=== PATIENT | male | born 2005 | race Caucasian/White ===

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

== ENCOUNTER 2024-01-26 11:07 | Outpatient (CLI) | payer MEDICAID, SELFPAY | END 2024-01-26 11:08 | disposition home or self-care (01) | PROVIDERS: Visit Provider Family Medicine | DX: E83.42 Hypomagnesemia (principal); R10.9 Unspecified abdominal pain; R11.0 Nausea | CPT/HCPCS: 80053; 83735 ==

== ENCOUNTER 2025-02-28 22:57 | Emergency (ER) | payer BC, SELFPAY ==
--- OUTSIDE RECORDS SUMMARY | 2025-02-28 22:59 | XMS_ITS | Clinical Summary ---
Author Organization [facility] Address [address] [place] [id number] Care Team Providers Care Camp Counselor Name Role Phone None Primary Care Provider Unavailabl e Allergies No known active allergies Medications aluminum-magnesium hydroxide-simethic one 200-200-20 mg/5 mL suspensionIndicati ons:Abdominal pain, unspecified abdominal location Take 15 mL by mouth 4 times daily if needed for GI Upset. Shake Well. 355 mL 10/05/19 25 Active capsaicin (ZOSTRIX-HP) 0.1 % creamIndications:C yclic vomiting syndrome Apply a liberal ribbon to abdomen as needed every 4 hours for nausea and vomiting (if it isn't burning it isn't working). 120 g 1 5 9:10 AM CDT 10/12/19 25 Active prochlorperazine (COMPAZINE) 25 mg suppositoryIndicat ions:Cyclic vomiting syndrome Insert 1 Suppository (25 mg) rectally every 12 hours if needed for Nausea/Vomitin g. 4 Suppository 5 9:10 AM CDT 10/12/19 25 Active ondansetron (ZOFRAN ODT) 4 mg disintegrating tabletIndications: Abdominal pain, unspecified abdominal location,Vomiting, unspecified vomiting type, unspecified whether nausea present Place 1 Tablet (4 mg) on the tongue every 8 hours if needed for Nausea/Vomitin g. 10 Tablet 5 9:10 AM CDT 10/12/19 Active ondansetron (ZOFRAN ODT) 4 mg disintegrating tabletIndications: Vomiting, unspecified vomiting type, unspecified whether nausea present Place 1 Tablet (4 mg) on the tongue every 8 hours if needed for Nausea/Vomitin g. 10 Tablet 02/16/20 Active metoclopramide HCl (REGLAN) 10 mg tabletIndications: Cyclical vomiting with nausea Take 1 Tablet (10 mg) by mouth every 6 hours if needed for Nausea/Vomitin g. 30 Tablet 02/21/20 Active Active Problems Problem Noted Date Diagnosed Date Hypokalemia 10/10/2024 Intractable nausea and vomiting 10/10/2024 Postoperative abscess 03/04/2024 Insomnia 03/04/2024 Appendicitis 02/28/2024 Anemia, blood loss 02/28/2024 Marijuana use 01/15/[address] of the abdomen 01/15/2024 Autism spectrum disorder 10/21/2020 Current moderate episode of major depressive disorder without prior episode 10/21/2020 ADHD (attention deficit hype ractivity disorder), combined type 10/21/2020 Myopia of both eyes 11/25/2015 Resolved Problems Problem Noted Date Diagnosed Date Resolved Date Hypokalemia 03/04/2024 03/14/2024 Syncope and collapse 02/28/2024 024 Hypomagnesemia 01/16/2024 03/14/2024 Intractable nausea and vomiting 01/15/2024 03/14/2024 Hyperglycemia 01/15/2024 03/14/2024 Encounters Date Type Department Care Team Description 02/20/2025 4:51 PM [facility] - 02/20/2025 7:09 PM [facility] Emergency [facility] [address] [place] [address] Matilde Marvin MD Cyclical vomiting with nausea (Primary Dx) Discharge Disposition: Home Self Care 02/20/2025 Travel 02/15/2025 8:36 PM [facility] - 02/15/2025 11:19 PM [facility] Emergency [facility] [address] [place] [address] Jona Baldwin MD Abdominal pain, unspecified abdominal location (Primary Dx); Vomiting, unspecified vomiting type, unspecified whether nausea present; Leukocytosis, unspecified type Discharge Disposition: Home Self Care 02/15/2025 Travel 02/06/2025 9:[address] CLERK Office Visit [facility] [address] [place] [address], [place] [address] Roseann Khan, OD Eye Exam 02/06/2025 Travel from Last 3 Months Immunizations Immunization Administration Dates Next Due DTaP 11/28/2008, 6,2004,10/27,2004 IHbI-GtzB-LSW (Pediarix) 2004,2004 DTaP-IPV (Kinrix) 11/28/2008 HIB PRP-OMP (PedvaxHIB) 10/01/2005,2004 HIB-HepB (Comvax) 2004 HPV 9 (Gardasil 9) 12/18/2021,10/25/2019 Hepatitis A (Peds) 11/11/2016,11/28/2008 Hepatitis B (Peds) 2004, 5,2004,06/25 Hib Conjugate, Unspecified 10/01/2005,2004 ,2004 INFLUENZA, IIV3 PF (AGE >= 6 MO) 02/29/2024() Inactivated Polio Vaccine 2004 Influenza Virus, Unspecified 01/24/2009 Influenza, IIV3 (Age >=3 years) 03/13/2010,01/24 Influenza, IIV4 03/15/2019 Influenza,LAIV3 Live Intrana ledy (Flumist) 03/13/2010 MENINGOCOCCAL VACCINE (MENQU ADFI 0.5ML) 2YO+ POLYSACCHARIDE PF 12/18/2021 MENINGOCOCCAL VACCINE 2 VIAL 2MO-55YO (MENVEO) 11/11/2016 MMR 11/28/2008,07/07/2005 Meningococcal B 12/18/2021 Pneumococcal conj 7-Valent (Prevnar 7) 0 10/01/2005,2004,2004,08/26 Polio Virus, Unspecified 11/28/2008,12/05,2004,08/26 Tdap 11/11/2016 Varicella Vaccine 11/28/2008,07/07/2005 Family History Medical History Relation Name Comments Good Health Brother 1 Good Health Brother 2 Good Health Brother 3 Good Health Brother 4 Good Health Father Good Health Mother Good Health Sister Relation Name Status Comments Brother 1 Alive Brother 2 Alive Brother 3 Alive Brother 4 Alive Father Alive Mother Alive Sister Alive Social History Tobacco Use Types Packs/Day Years Used Date Smoking Tobacco: Never Smokeless Tobacco: Never Tobacco Cessation:Counseling Given: No Alcohol Use Standard Drinks/Week Comments No 0 (1 standard drink = 0.6 oz pur e alcohol) Social Connections Answer Date Recorded Do you often feel lonely or isolated from those around you? 0 10/10/2024 Financial Resource Strain Answer Date R ecorded Difficulty of Paying Living Expenses 3 01/15/2024 Difficulty of Paying Living Expenses Not on file 01/15/2024 Food Insecurity Answer Date Recorded Do you worry your food will run out before you are able to buy more? 1 10/10/2024 Transportation Needs Answer Date Record ed Does lack of transportation keep you from medica l appointments? 1 10/10/2024 Does lack of transportation keep you from work, meetings or getting things that you need? 1 10/10/2024 Housing Stability Answer Date Recorded What is your housing situation today? 1 10/10/2024 Interpersonal Safety Answer Date Record ed Are you being hit, kicked, p ushed or yelled at (see row info)? No 02/20/2025 Interpersonal Safety Abuse 12 - 18 Not on file 02/20/2025 Interpersonal Safety Ambulatory Vulnerability No t on file 02/20/2025 Utilities Answer Date Recorded Do you have trouble paying f or utilities (for example, heat, electricity, water, phone)? 1 10/10/2024 Sex and Gender Information Value Date Recorded Sex Assigned at Not on file Legal Sex Male 7:[address] CLERK Gender Identity Not on file Sexual Orientation Not on file Obstetrics History Last Filed Vital Signs Vital Sign Reading Time Taken Comments Blood Pressure 118/70 02/20/2025 7:[address] CLERK Pulse 87 02/20/2025 7:[address] CLERK Temperature 36.6 C (97.9 F) 02/20/2025 4:[address] CLERK Respiratory Rate 16 02/20/2025 4:[address] CLERK Oxygen Saturation 97% 02/20/2025 7:[address] CLERK Inhaled Oxygen Concentration - - Weight 59.2 kg (130 lb 9.6 oz) 02/20/2025 4:[address] CLERK Height 175.3 cm (5' 9) 02/20/2025 4:[address] CLERK Body Mass Index 19.29 02/20/2025 4:[address] CLERK Plan of Treatment Health Maintenance Due Date Last Done Comments Well Child Check for age 3-20 05/28/2007 Depression screening for age 12+ 2016 HIV for age 15-65 06/26/2019 HPV series for age 9-45 (3 - Male 3-dose series) 03/12/2022 12/18/2021, 10/25/2019 Hepatitis C screening for age 18-79 2022 COVID-19 vaccine series ( season) 2024 08/23/2020, 08/02/2020 Influenza Vaccine (#1) 2024 9, 03/13/2010, 03/13/2010, Additional history exists BMI (ht and wt on same day) for age 18+ 10/12/2025 10/12/2024, 03/16/2024 Tetanus booster 11/11/2026 11/11/2016 RSV vaccine for adults or (1 - 1-dose 75+ series) 06/26/2079 Hepatitis B series for 19+ Completed 12/26, 2004, 2004, Additional history exists Pneumococcal series for age 6-49 Aged Out 10/01/2005, 2004, 2004, Additional history exists No longer eligible based on patient's age to complete this topic Meningococcal series for age 11-21 Completed 12/18/2021, 11/11/2016 Procedures Procedure Name Priority Date/Time Associated Diagnosis Comments MAGNESIUM STAT 02/20/2025 5:[address] CLERK BASIC METABOLIC PANEL STAT 02/20/2025 5:[address] CLERK CBC W PLT NO DIFF STAT 02/20/2025 5:[address] CT ABDOMEN PELVIS W STAT 02/15/2025 9 :[address] CLERK HEPATIC FUNCTION PANEL STAT 02/15/2025 9:[address] CLERK LIPASE STAT 02/15/2025 9:[address] CLERK BASIC METABOLIC PANEL STAT 02/15/2025 9:[address] CLERK CBC W PLT NO DIFF STAT 02/15/2025 9:[address] CLERK from Last 3 Months Results * (ABNORMAL) CBC W PLT NO DIFF (02/20/2025 5:[address] CLERK) Only the most recent of2 resultswithin the time period is included. WHITE BLOOD COUNT 11.0 4.5 - 11.0 thou/cu mm 02/20/2025 5:26 PM [facility] RED BLOOD COUNT 5.03 4.30 - 5.90 mil/cu mm 02/20/2025 5:26 PM [facility] HEMOGLOBIN 16.3 13.5 - 17.5 g/dL 02/20/2025 5:26 PM [facility] HEMATOCRIT 44.5 37.0 - 53.0 % 02/20/2025 5:26 PM [facility] MCV 89 80 - 100 fL 02/20/2025 5:26 PM [facility] MCH 32.4 26.0 - 34.0 pg 02/20/2025 5:26 PM [facility] MCHC 36.6(H) 32.0 - 36.0 g/dL 02/20/2025 5:26 PM [facility] RDW 11.4(L) 11.5 - 15.5 % 02/20/2025 5:26 PM [facility] PLATELET COUNT 345 140 - 440 thou/cu mm 02/20/2025 5:26 PM [facility] MPV 9.3 6.5 - 11.0 fL 02/20/2025 5:26 PM [facility] Blood BLOOD SPECIMEN / Unknown Venipuncture / Unknown 02/20/2025 5:[address] CLERK 02/20/2025 5:[address] CLERK Matilde Marvin MD HEMATOLOGY Final Result Performing Organization Address City/[facility]/ZIP Co de Phone Number [facility] [address] [place] [address] * MAGNESIUM (02/20/2025 5:[address] CLERK) Pathologist [facility] MAGNESIUM 2.2 1.6 - 2.6 mg/dL 02/20/2025 5:45 PM [facility] Blood BLOOD SPECIMEN / Unknown Venipuncture / Unknown 02/20/2025 5:[address] CLERK 02/20/2025 5:[address] CLERK Matilde Marvin MD CHEMISTRY Final Result Performing Organization Address City/[facility]/ZIP Co de Phone Number [facility] [address] [place] [address] * (ABNORMAL) BASIC METABOLIC PANEL (02/20/2025 5:[address] CLERK) Only the most recent of2 resultswithin the time period is included. SODIUM 138 136 - 145 mmol/L 02/20/2025 5:45 PM [facility] POTASSIUM 4.0 3.5 - 5.1 mmol/L 02/20/2025 5:45 PM [facility] CHLORIDE 99 98 - 107 mmol/L 02/20/2025 5:45 PM [facility] CO2,TOTAL 27 22 - 29 mmol/L 02/20/2025 5:45 PM [facility] ANION GAP 12 5 - 18 02/20/2025 5:45 PM [facility] GLUCOSE 112(H) 70 - 99 mg/dL 02/20/2025 5:45 PM [facility] CALCIUM 10.3 8.8 - 10.4 mg/dL 02/20/2025 5:[address] CLERK [facility] Comment: Reference ranges for this test were updated on 02/08/2024 to reflect our healthy population more accurately. Reference range changes are not retroactively applied to results, but previous results using the same methodology can be interpreted in the context of the new reference range. BUN 15 6 - 20 mg/dL 02/20/2025 5:[address] CLERK [facility] CREATININE 1.06 0.70 - 1.20 mg/dL 02/20/2025 5:[address] CLERK [facility] BUN/CREAT RATIO 14 10 - 20 5:[address] CLERK [facility] eGFR >90 >90 mL/min/1. 73m2 02/20/2025 5:[address] CLERK [facility] Comment:As of 2021, eG FR is calculated by the CKD-EPI creatinine equation without race adjustment. eGFR can be influenced by muscle mass, exercise, and diet. The reported eGFR is an estimation only and is only applicable if the renal function is stable. Blood BLOOD SPECIMEN / Unknown Venipuncture / Unknown 02/20/2025 5:[address] CLERK 02/20/2025 5:[address] CLERK Matilde Marvin MD CHEMISTRY Final Result [facility] [address] [place] [address] * CT ABDOMEN PELVIS W (02/15/2025 9:[address] CLERK) Anatomical Region Laterality Modality Abdomen, Pelvis, AORTA, LIVER, SPLEEN Computed Tomography 02/15/2025 11:[address] CLERK Impressions 02/15/2025 11:[address] CLERK No acute pathology in the abdomen or pelvis. Please note that all CT scans at this facility use dose modulation, iterative reconstruction, and/or weight-based dosing when appropriate to reduce radiation dose to as low as reasonably achievable. Dictated by Jaret Lorenzo MD @ 02/15/2025 11:08:30 PM (Electronically Signed) Narrative 02/15/2025 11:[address] CLERK For Patients: As a result of the Cures Act, medical imaging exams and procedure reports are released immediately into your electronic medical record. You may view this report before your referring provider. If you have questions, please contact your health care provider. INDICATION: Abdominal pain, acute, nonlocalized TECHNIQUE: CT abdomen and pelvis acquired with 100 cc Omnipaque 350 IV contrast. COMPARISON: CT abdomen and pelvis on October 03, 2024. FINDINGS: Lower chest: Unremarkable. Liver: Non cirrhotic morphology. Normal in size and attenuation. No suspicious masses. Gallbladder and bile ducts: No stones or inflammation. No biliary dilatation. Pancreas: No mass or inflammation. Spleen: Unremarkable. Normal in size. No masses. Adrenal glands: Unremarkable. No nodules. Kidneys: Symmetric enhancement with no perinephric fat stranding. No suspicious masses, stones, or hydronephrosis. GI tract: Stomach is decompressed, limiting evaluation, but appears grossly normal. Small and large bowel is normal in caliber without obstruction. Appendectomy. Colonic stool burden is within normal limits. No pneumatosis, pneumoperitoneum or portal venous gas. Vasculature: Abdominal aorta is normal in caliber. Mesenteric arteries are patent. Lymph nodes: No lymphadenopathy. Peritoneum/Abdominal Wall: No sign of mass or infiltration. No free air or significant free fluid. Pelvis: Unremarkable. Bones: No acute fracture. No aggressive appearing lytic or blastic osseous lesion Procedure Note Jaret Lorenzo MD - 02/15/2025 For Patients: As a result of the Cures Act, medical imagingexams and procedure reports are released immediately into your electronicmedical record. You may view this report before your referring provider.If you have questions, please contact your health care provider. INDICATION: Abdominal pain, acute, nonlocalized TECHNIQUE: CT abdomen and pelvis acquired with 100 cc Omnipaque 350 IV contrast. COMPARISON: CT abdomen and pelvis on October 03, 2024. FINDINGS: Lower chest: Unremarkable. Liver: Non cirrhotic morphology. Normal in size and attenuation. Nosuspicious masses. Gallbladder and bile ducts: No stones or inflammation. No biliarydilatation. Pancreas: No mass or inflammation. Spleen: Unremarkable. Normal in size. No masses. Adrenal glands: Unremarkable. No nodules. Kidneys: Symmetric enhancement with no perinephric fat stranding. Nosuspicious masses, stones, or hydronephrosis. GI tract: Stomach is decompressed, limiting evaluation, but appearsgrossly normal. Small and large bowel is normal in caliber withoutobstruction. Appendectomy. Colonic stool burden is within normal limits.No pneumatosis, pneumoperitoneum or portal venous gas. Vasculature: Abdominal aorta is normal in caliber. Mesenteric arteries arepatent. Lymph nodes: No lymphadenopathy. Peritoneum/Abdominal Wall: No sign of mass or infiltration. No free air orsignificant free fluid. Pelvis: Unremarkable. Bones: No acute fracture. No aggressive appearing lytic or blastic osseouslesion IMPRESSION: No acute pathology in the abdomen or pelvis. Please note that all CT scans at this facility use dose modulation,iterative reconstruction, and/or weight-based dosing when appropriate toreduce radiation dose to as low as reasonably achievable. Dictated by Jaret Lorenzo MD @ 02/15/2025 11:08:30 PM (Electronically Signed) Jona Baldwin MD CT Final R esult * LIPASE (02/15/2025 9:[address] CLERK) Pathologist [facility] LIPASE 14.5 13.0 - 60.0 IU/L 02/15/2025 9:[address] CLERK [facility] Blood BLOOD SPECIMEN / Unknown Butterfly / Unknown 02/15/2025 9:[address] CLERK 02/15/2025 9:[address] CLERK Jona Baldwin MD CHEMISTRY Final R esult [facility] [address] [place] [id number] * (ABNORMAL) HEPATIC FUNCTION PANEL (02/15/2025 9:[address] CLERK) ALBUMIN 5.2(H) 4.0 - 4.9 g/dL 02/15/2025 11:[address] CLERK [facility] PROTEIN,TOTAL 8.2(H) 6.0 - 8.0 g/dL 02/15/2025 11:[address] CLERK [facility] BILIRUBIN,TOTAL 1.2 0.0 - 1.2 mg/dL 02/15/2025 11:45 PM [facility] BILIRUBIN,DIRECT 0.4(H) 0.0 - 0.2 mg/dL 02/15/2025 11:45 PM [facility] BILIRUBIN,INDIRE CT 0.8 0.2 - 0.8 mg/dL 02/15/2025 11:[address] CLERK [facility] ALK PHOSPHATASE 104 40 - 129 IU/L 02/15/2025 11:45 PM [facility] ALT (SGPT) 20 10 - 50 IU/L 02/15/2025 11:45 PM [facility] AST (SGOT) 02/15/2025 11:45 PM [facility] Comment:Canceled- Invalid Re sult(s) Blood BLOOD SPECIMEN / Unknown Butterfly / Unknown 02/15/2025 9:[address] CLERK 02/15/2025 9:[address] CLERK Joan Baldwin MD CHEMISTRY Final R esult [facility] [address] [place] [address] from Last 3 Months Insurance [facility] * Guarantor: ROBERT GRAY Account Type Relation to Patient Date of Phone Billing Address Personal/Family Father [phone] [place] [address] Advance Directives * Full Code (Latest Code Status on File) Date Activated Date Inactivated Comments 10/10/2024 2:13 PM 10/11/2024 12:50 PM Question Answer Comments Code Status Discussion: Reviewed Preferences * Full Code Date Activated Date Inactivated Comments 03/04/2024 8:49 PM 03/09/2024 7:01 PM Question Answer Comments Code Status Discussion: Reviewed Preferences * Full Code Date Activated Date Inactivated Comments 02/27/2024 4:23 PM 02/29/2024 2:32 PM Question Answer Comments Code Status Discussion: Unable to Assess Preferences, Provider to review later * Full Code Date Activated Date Inactivated Comments 01/15/2024 6:42 PM 01/16/2024 1:32 PM Question Answer Comments Code Status Discussion: Reviewed Preferences * DNR Date Activated Date Inactivated Comments 01/15/2024 4:49 PM 01/15/2024 6:42 PM Question Answer Comments Code Status Discussion: Reviewed Preferences Care Teams Camp Counselor Relationship Specialty Start Date End Date None . PCP - General 02/15/25
[2025-02-28 23:19] VITALS: BP 146/95; PULSE 92; RESP 16; TEMP 35.9; O2SAT 94; BMI 19.2
--- NOTE | 2025-02-28 23:39 | ED.GENADULT ---
HPI - General Adult General Chief complaint: Nausea/Vomiting Stated complaint: vomiting, abdominal pain Time Seen by Provider: 02/28/25 23:28 Source: patient Mode of arrival: ambulatory Limitations: no limitations History of Present Illness HPI narrative: 19-year-old male presents to the emergency department with about of recurrent vomiting. Patient has been struggling with GI issues over the past year. It sounds like he had an appendicitis about a year ago, then had complications of disseminated infection after. He has been struggling with recurrent bouts of nausea and vomiting since. He tells me that he has had this worked up at an outside hospital multiple times, including his last visit which he says is 3 days ago, his significant other reports that it was under a week ago as well. He has had multiple prior CT scans, including at his last visit which were reportedly normal. No history pancreatitis. Reports that he had 3 [place] is a yesterday and has been having extensive nausea and vomiting ever since. He states that he does not use any THC or marijuana products on a regular basis, has tried them a couple of times but did not find them to be helpful. No fever. No trauma or injury. No bloody stools, no diarrhea. No hematemesis. He has been given Reglan and Zofran from the [facility]. He has never made an appointment with the primary care doctor or seen a GI specialist. He has tried both the Reglan and Zofran tonight with no significant improvement in symptoms. No hematemesis. No fever. Episodes are similar to previous. He reports his past medical history is notable for the appendicitis and subsequent GI issue since. No known drug allergies. No long-term meds, does have Zofran and Reglan p.r.n.. Denies marijuana. ROS is notable for the GI symptoms only, otherwise denies times 12 systems. Related Data Home Medications ?Medication ?Instructions ?Recorded ?Confirmed No Known Home Medications 12/18/21 01/01/22 Allergies Allergy/AdvReac Type Severity Reaction Status Date / Time No Known Drug Allergies Allergy Verified 01/26/24 10:30 [facility] Medical History Suicidal ideation ?R45.851 - Suicidal ideations (ICD-10) Autism spectrum disorder ?F84.0 - Autistic disorder (ICD-10) Major depression ?F32.9 - Major depressive disorder, single episode, unspecified (ICD-10) Social History What is your current living situation?: I presently have a place to live Problems where you live: no known problems In past 12 months, lack of transportation kept you from medical appts, meetings, work, or getting things needed for daily living: no In the past 12 mos, have been you worried that your food would run out before you had money to buy more?: never true In the past 12 mos, the food you bought just didn't last and you didn't have money to buy more?: never true Smoking Status: Never smoker Non-prescribed substance use: denies use How often does anyone, including family, friends and others, physically hurt you: never How often does anyone, including family, friends and others, insult or talk down to you: never How often does anyone, including family, friends and others, threaten you with harm: never How often does anyone, including family, friends and others, scream or curse at you: never Exam Const: Vital Signs, click to edit/add: Vital Signs - 24 hr 02/28/25 23:19 Temperature 96.7 F L Pulse Rate [Pulse Oximeter] 92 Respiratory Rate 16 Blood Pressure [Ri ght Upper Arm] 146/95 H Pulse Oximetry 94 Oxygen Delivery Me thod Room Air Documenting provider has reviewed patient's vital signs: yes Common normals: no apparent distress General appearance: cooperative HENMT: Common normals: normocephalic, moist oral mucous membranes and oropharynx normal Head and scalp: normocephalic Mouth: oral and palatal mucosa normal Eye: Common normals: conjunctivae normal Conjunctiva: conjunctiva(e) normal Other: Sclera looks slightly jaundiced. Neck & C-Spine: Common normals: full ROM and no lymphadenopathy General: normal visual inspection Resp: Common normals: normal respiratory effort, no use of accessory muscles and clear to auscultation bilaterally Effort & inspection: able to speak in complete sentences Auscultation: clear to auscultation bilaterally Cardio: Common normals: regular rate, regular rhythm, S1 normal heart sound, S2 normal heart sound and no murmurs Rate: regular rate Rhythm: regular rhythm Heart sounds: S1 normal and S2 normal GI: Common normals: Normal to inspection, nondistended, normoactive bowel sounds present, no hepatosplenomegaly and no masses Palpation: no hepatosplenomegaly Other: Mildly tender along epigastrium but does not tolerate the exam very well anywhere. Certainly does not have any rebound tenderness or guarding. Seems to have the same level of discomfort to light or deep touch. Back & Pelvis: Common normals: thoracic and lumbar spine normal to inspection Extremity: Common normals: normal to inspection, normal capillary refill and no pedal edema Psych: Appearance: grossly normal Attitude: engaged Activity/motor behavior: appropriate eye contact Insight: insight good Judgement: judgment good Skin: Common normals: no rashes or lesions noted General skin exam: no rashes or lesions noted Course Course ED Course: 19-year-old male with recurrent episodes of nausea and vomiting presenting with acute nausea and vomiting for 24 hours. Sounds like cyclic vomiting syndrome, does not sound cannabinoid induced based on lack of THC exposure. Patient has had this worked up multiple times including recent CT per his report at other hospitals. Will place peripheral IV, obtain typical labs to make sure there is no signs of biliary obstruction, pancreatitis, sepsis, severe infection, electrolyte abnormality, renal dysfunction. Will give lactated Ringer's, Compazine and Protonix. May benefit from a trial of olanzapine. Counseled patient that here in the ED, I am unlikely to be able to solve this in the middle of the night on a holiday for him. I have strongly encouraged him to make a follow-up appointment with primary care doctor and referral to a GI specialist for further workup. I do think he needs an endoscopy. But since he is not showing any signs of acute bleed, I do not have any indications to transfer him at this time. Will see how he response to initial medications and encourage further outpatient workup. Reevaluation(s) Reevaluation #1: Update: Patient had good improvement of symptoms with fluids, Compazine and Protonix. Labs reviewed, all reassuring. Counseled patient on management plan. He will make an outpatient appointment to work this up further. Will start omeprazole 20 mg p.o. daily. Continue Zofran and Reglan if needed. If patient not having improvement in a couple of weeks with the antacid, would recommend a consideration of olanzapine and or GI consult. Written instructions provided, all questions answered. Vital Signs Vital signs: Initial Vital Signs Temperature 96.7 F L 02/28/25 23:19 Temperature Source Temporal Artery Scan 02/28/25 23:19 Pulse Rate 92 02/28/25 23:19 Respiratory Rate 16 02/28/25 23:19 Blood Pressure 146/95 H 02/28/25 23:19 Blood Pressure Mean 112 H 02/28/25 23:19 Blood Pressure Position Semi-Fowlers 02/28/25 23:19 Pulse Oximetry 94 02/28/25 23:19 Oxygen Delivery Method Room Air 02/28/25 23:19 Vital Signs Temperature 96.7 F L 02/28/25 23:19 Pulse Rate 92 02/28/25 23:19 Respiratory Rate 16 02/28/25 23:19 Blood Pressure 146/95 H 02/28/25 23:19 Pulse Oximetry 94 02/28/25 23:19 Oxygen Delivery Method Room Air 02/28/25 23:19 Temperature 96.7 F L 02/28/25 23:19 Pulse Rate 92 02/28/25 23:19 Respiratory Rate 16 02/28/25 23:19 Blood Pressure 146/95 H 02/28/25 23:19 Pulse Oximetry 94 02/28/25 23:19 Oxygen Delivery Method Room Air 02/28/25 23:19 Medications Administered Medications: Discontinued Medications Generic Name Dose Route Start Last Admin Trade Name Freq PRN Reason Stop Dose Admin Lactated Ringer's 1,000 mls @ 1,000 mls/hr 02/28/25 23:29 03/01/25 01:00 Lactated Ringers 1000 Ml IV 03/01/25 00:28 Infused .Q1H ONE Infusion Lactated Ringer's 1,000 mls @ 1,000 mls/hr 03/01/25 00:30 03/01/25 02:03 Lactated Ringers 1000 Ml IV 03/01/25 01:29 Infused .Q1H ONE Infusion Pantoprazole Sodium 80 mg 02/28/25 23:36 03/01/25 00:23 Pantoprazole Sodium 40 Mg Inj IVP 02/28/25 23:37 80 mg ONCE ONE Administration Prochlorperazine 10 mg 02/28/25 23:36 03/01/25 00:23 Prochlorperazine 5 Mg/Ml Vial IV 02/28/25 23:37 10 mg ONCE ONE Administration Medical Decision Making Lab Data Lab results reviewed: Yes I reviewed the patient's lab results Lab results narrative: Labs reassuring. Minimal leukocytosis but normal creatinine, normal electrolytes. Anion gap is a little elevated but likely secondary to dehydration which of course will improve with all of the IV fluids given. Liver enzymes look good, inflammatory markers are negative, no pancreatitis. Labs: Lab Results 03/01/25 Range/Units 00:11 WBC 13.72 H (4.50-11.00) K/uL RBC 5.37 (4.30-5.90) m/uL Hgb 17.5 (13.5-17.5) gm/dL Hct 47.6 (37.0-53.0) % MCV 89 (80-100) fL MCH 33 (26-34) pg MCHC 37 H (32-36) gm/dL RDW Coeff of Jc 11.3 L (11.5-15.5) % Plt Count 385 (140-440) K/uL Neut % (Auto) 92.3 H (42.0-72.0) % Lymph % (Auto) 4.0 L (20-44) % [place] % (Auto) 3.5 (0.0-11.0) % Eos % (Auto) 0.0 (0.0-7.0) % Baso % (Auto) 0.1 (0.0-3.0) % Neut # (Auto) 12.70 H (1.7-7.0) K/uL Lymph # (Auto) 0.50 L (0.90-2.90) K/uL [place] # (Auto) 0.50 (0.00-0.90) K/UL Eos # (Auto) 0.00 (0.00-0.50) K/uL Baso # (Auto) 0.00 (0.00-0.30) K/uL Abs Immat Gran (auto) 0.00 (0.00-0.30) K/uL Imm/Tot Granulo (auto) 0.1 % Sodium 138 (135-149) mmol/L Potassium 4.1 (3.6-5.1) mmol/L Chloride 97 (96-114) mmol/L Carbon Dioxide 22 (20-32) mmol/L Anion Gap 19 H (7-15) mEq/L BUN 19 (5-24) mg/dL Creatinine 1.0 (0.5-1.5) mg/dL Estimated Creat Clear 98.28 Estimated GFR 111 ml/min Glucose 131 H (60-115) mg/dL Lactate 2.3 H (0.5-1.9) mmol/L Calcium 10.6 (8.4-10.6) mg/dL Total Bilirubin 2.1 H (0.1-1.5) mg/dL AST 34 (12-35) U/L ALT 30 (4-50) U/L Alkaline Phosphatase 101 (40-150) U/L C-Reactive Protein < 0.5 L (0.5-1.0) mg/dL Total Protein 9.3 H (6.0-8.3) g/dL Albumin 5.6 H (3.3-5.0) g/dL Lipase 66 (23-300) U/L Discharge Plan Discharge Clinical Impression: Cyclic vomiting syndrome Patient Disposition: Home w/ Parent or Adult Instructions: Cyclic Vomiting Syndrome (ED) Additional Instructions: As we discussed, I am not sure what is causing her vomiting. I can safely say that you do not have any signs of biliary obstruction, bleeding ulcers, pancreatitis, infection or other dangerous reasons. Since you have had so many CT scans over the last few months, I do not recommend repeating that today, it is unlikely to change our management and that much radiation can be dangerous for you. I want you to start taking an [id number] antacid called omeprazole 20 mg once daily 30 minutes before your evening meal. This will help he will be inflammation in your stomach over about a 2 week time frame. If you find it helpful, it is safe to continue on this longer term or switch to Zantac which is a different [id number] 1 which may be safer if you do need it long-term. You can keep using the Reglan and Zofran that have been previously prescribed. You should come to any ED if you have high fever and severe abdominal pain, if you have not been able to hold down any liquids for 48 hours, have bloody vomit, bloody stools or other signs of severe complication. Unfortunately, if you keep coming to emergency room rather than seeing a primary care doctor or specialist, we will keep doing the same basic workup and you may not be able to move forward and getting a good diagnosis and long-term treatment plan. Another medication to consider would be olanzapine 2.5-5 mg at bedtime as a preventative medication if the omeprazole is not helpful. This would need to be prescribed by a primary care doctor. Activity Level: No Restrictions Discharge Diet: Regular Prescriptions: No Action No Known Home Medications Follow Up/Referrals: Nitin Ramsey MD [Primary Care Provider, Family Practice] Stand Alone Forms: [employer] Info Instructions
[2025-03-01] MEDS: LACTATED RINGERS 1000 ML 1,000 ML IV ×2 (00:11→00:59)
[2025-03-01 00:14] LABS: Lactate* 2.3 mmol/L (0.5-1.9)
[2025-03-01 00:16] LABS: Hematocrit* 47.6 % (37.0-53.0); Hemoglobin* 17.5 gm/dL (13.5-17.5); Immature Granulocytes Pct Auto 0.1 %; Mean Corpuscular HGB Conc 37 gm/dL (32-36); Mean Corpuscular Hemoglobin 33 pg (26-34); Mean Corpuscular Volume 89 fL (80-100); RDW Coefficient of Variation % 11.3 % (11.5-15.5); Red Blood Count* 5.37 m/uL (4.30-5.90); White Blood Count* 13.72 K/uL (4.50-11.00)
[2025-03-01 00:17] LABS: Immature Granulocytes Abs Auto 0.00 K/uL (0.00-0.30); Lymphocytes Absolute Auto 0.50 K/uL (0.90-2.90); Slide Review Reflex No
--- OUTSIDE RECORDS SUMMARY | 2025-03-01 00:20 | XMS_ITS | Clinical Summary ---
Author Organization [facility] Address [address] [place] [id number] Care Team Providers Care Portable Irrigation Operator Name Role Phone None Primary Care Provider [...] Department Care Team Description 02/20/2025 4:51 PM [facility] - 02/20/2025 7:09 PM [facility] [address] [place] [address] Matilde Marvin MD Cyclical vomiting with nausea (Primary Dx) Discharge Disposition: Home Self Care 02/20/2025 Travel 02/15/2025 8:36 PM [facility] - 02/15/2025 11:19 PM [facility] [address] [place] [address] Jona Baldwin MD Abdominal pain, unspecified abdominal location (Primary Dx); Vomiting, unspecified vomiting type, unspecified whether nausea present; Leukocytosis, unspecified type Discharge Disposition: Home Self Care 02/15/2025 Travel 02/06/2025 9:20 AM [employer] Office Visit [facility] [address] [place] [address], [place] [phone] Roseann Khan, OD Eye Exam 02/06/2025 Travel from Last 3 Months Immunizations Immunization Administration Dates Next Due DTaP 11/28/2008, 6,2004,10/27,2004 [id number]-[id number] (Pediarix) 2004,2004 DTaP-IPV (Kinrix) 11/28/2008 HIB PRP-OMP [...] on file Legal Sex Male 7:24 AM [employer] Gender Identity Not on file Sexual Orientation Not on file Obstetrics History Last Filed Vital Signs Vital Sign Reading Time Taken Comments Blood Pressure 118/70 02/20/2025 7:01 PM [employer] Pulse 87 02/20/2025 7:01 PM [employer] Temperature 36.6 C (97.9 F) 02/20/2025 4:55 PM [employer] Respiratory Rate 16 02/20/2025 4:54 PM [employer] Oxygen Saturation 97% 02/20/2025 7:01 PM [employer] Inhaled Oxygen Concentration - - Weight 59.2 kg (130 lb 9.6 oz) 02/20/2025 4:54 P M [employer] Height 175.3 cm (5' 9) 02/20/2025 4:54 PM [employer] Body Mass Index 19.29 02/20/2025 4:54 PM [employer] Plan of Treatment Health Maintenance Due Date [...] Diagnosis Comments MAGNESIUM STAT 02/20/2025 5:18 PM [employer] BASIC METABOLIC PANEL STAT 02/20/2025 5:18 PM [employer] CBC W PLT NO DIFF STAT 02/20/2025 5:[address] ABDOMEN PELVIS W STAT 02/15/2025 9 :40 PM [employer] HEPATIC FUNCTION PANEL STAT 02/15/2025 9:16 PM [employer] LIPASE STAT 02/15/2025 9:16 PM [employer] BASIC METABOLIC PANEL STAT 02/15/2025 9:16 PM [employer] CBC W PLT NO DIFF STAT 02/15/2025 9:1 6 PM [employer] from Last 3 Months Results * (ABNORMAL) CBC W PLT NO DIFF (02/20/2025 5:18 PM [employer]) Only the most recent of2 resultswithin the time period is included. WHITE BLOOD COUNT 11.0 4.5 - 11.0 thou/cu mm 02/20/2025 5:26 PM [facility] RED BLOOD COUNT 5.03 4.30 - 5.90 mil/cu mm 02/20/2025 5:26 PM [facility] HEMOGLOBIN 16.3 13.5 - 17.5 g/dL 02/20/2025 5:26 PM [facility] HEMATOCRIT 44.5 37.0 - 53.0 % 02/20/2025 5:26 PM [facility] MCV 89 80 - 100 fL 02/20/2025 5:26 PM [facility] MCH 32.4 26.0 - 34.0 pg 02/20/2025 5:26 PM [facility] MCHC 36.6(H) 32.0 - 36.0 g/dL 02/20/2025 5:26 PM [facility] RDW 11.4(L) 11.5 - 15.5 % 02/20/2025 5:26 PM [facility] PLATELET COUNT 345 140 - 440 thou/cu mm 02/20/2025 5:26 PM [facility] MPV 9.3 6.5 - 11.0 fL 02/20/2025 5:26 PM [facility] Blood BLOOD SPECIMEN / Unknown Venipuncture / Unknown 02/20/2025 5:18 PM [employer] 02/20/2025 5:22 PM [employer] Matilde Marvin MD HEMATOLOGY Final Result Performing Organization Address City/[facility]/ZIP Co de Phone Number [facility] [address] [place] [address] * MAGNESIUM (02/20/2025 5:18 PM [employer]) Pathologist [facility] MAGNESIUM 2.2 1.6 - 2.6 mg/dL 02/20/2025 5:45 PM [facility] Blood BLOOD SPECIMEN / Unknown Venipuncture / Unknown 02/20/2025 5:18 PM [employer] 02/20/2025 5:22 PM [employer] Matilde Marvin MD CHEMISTRY Final Result Performing Organization Address City/[facility]/ZIP Co de Phone Number [facility] [address] [place] [address] * (ABNORMAL) BASIC METABOLIC PANEL (02/20/2025 5:18 PM [employer]) Only the most recent of2 resultswithin the time period is included. SODIUM 138 136 - 145 mmol/L 02/20/2025 5:45 PM [facility] POTASSIUM 4.0 3.5 - 5.1 mmol/L 02/20/2025 5:45 PM [facility] CHLORIDE 99 98 - 107 mmol/L 02/20/2025 5:45 PM [facility] CO2,TOTAL 27 22 - 29 mmol/L 02/20/2025 5:45 PM [facility] ANION GAP 12 5 - 18 02/20/2025 5:45 PM [facility] GLUCOSE 112(H) 70 - 99 mg/dL 02/20/2025 5:45 PM [facility] CALCIUM 10.3 8.8 - 10.4 mg/dL 02/20/2025 5:45 PM [employer] [facility] Comment: Reference ranges for this test were updated on 02/08/2024 to reflect our healthy population more accurately. Reference range changes are not retroactively applied to results, but previous results using the same methodology can be interpreted in the context of the new reference range. BUN 15 6 - 20 mg/dL 02/20/2025 5:45 PM [employer] [facility] CREATININE 1.06 0.70 - 1.20 mg/dL 02/20/2025 5:45 PM [employer] [facility] BUN/CREAT RATIO 14 10 - 20 5:45 PM [employer] [facility] eGFR >90 >90 mL/min/1. 73m2 02/20/2025 5:45 PM [employer] [facility] Comment:As of 2021, eG FR is calculated by the CKD-EPI creatinine equation without race adjustment. eGFR can be influenced by muscle mass, exercise, and diet. The reported eGFR is an estimation only and is only applicable if the renal function is stable. Blood BLOOD SPECIMEN / Unknown Venipuncture / Unknown 02/20/2025 5:18 PM [employer] 02/20/2025 5:22 PM [employer] Matilde Marvin MD CHEMISTRY Final Result [facility] [address] [place] [address] * CT ABDOMEN PELVIS W (02/15/2025 9:40 PM [employer]) Anatomical Region Laterality Modality Abdomen, Pelvis, AORTA, LIVER, SPLEEN Computed Tomography 02/15/2025 11:0 8 PM [employer] Impressions 02/15/2025 11:08 PM [employer] No acute pathology in the abdomen or pelvis. Please note that all CT scans at this facility use dose modulation, iterative reconstruction, and/or weight-based dosing when appropriate to reduce radiation dose to as low as reasonably achievable. Dictated by Jaret Lorenzo MD @ 02/15/2025 11:08:30 PM (Electronically Signed) Narrative 02/15/2025 11:08 PM [employer] For Patients: As a result of the [...] R esult * LIPASE (02/15/2025 9:16 PM [employer]) Pathologist [facility] LIPASE 14.5 13.0 - 60.0 IU/L 02/15/2025 9:48 PM [employer] [facility] Blood BLOOD SPECIMEN / Unknown Butterfly / Unknown 02/15/2025 9:16 PM [employer] 02/15/2025 9:27 PM [employer] Jona Baldwin MD CHEMISTRY Final R esult [facility] [address] [place] [id number] * (ABNORMAL) HEPATIC FUNCTION PANEL (02/15/2025 9:16 PM [employer]) ALBUMIN 5.2(H) 4.0 - 4.9 g/dL 02/15/2025 11:45 PM [employer] [facility] PROTEIN,TOTAL 8.2(H) 6.0 - 8.0 g/dL 02/15/2025 11:45 PM [employer] [facility] BILIRUBIN,TOTAL 1.2 0.0 - 1.2 mg/dL 02/15/2025 11:45 PM [facility] BILIRUBIN,DIRECT 0.4(H) 0.0 - 0.2 mg/dL 02/15/2025 11:45 PM [facility] BILIRUBIN,INDIRE CT 0.8 0.2 - 0.8 mg/dL 02/15/2025 11:45 PM [employer] [facility] ALK PHOSPHATASE 104 40 - 129 IU/L 02/15/2025 11:45 PM [facility] ALT (SGPT) 20 10 - 50 IU/L 02/15/2025 11:45 PM [facility] AST (SGOT) 02/15/2025 11:45 PM [facility] Comment:Canceled- Invalid Re sult(s) Blood BLOOD SPECIMEN / Unknown Butterfly / Unknown 02/15/2025 9:16 PM [employer] 02/15/2025 9:27 PM [employer] Jona Baldwin MD CHEMISTRY Final R esult [facility] [address] [place] [address] from Last 3 Months Insurance [facility] * Guarantor: ROBERT GRAY Account Type Relation to Patient Date of Phone Billing Address Personal/Family Father [phone] [place] [phone] Advance Directives * Full Code (Latest Code [...] Code Status Discussion: Reviewed Preferences Care Teams Portable Irrigation Operator Relationship Specialty Start Date End Date None . PCP - General 02/15/25
[2025-03-01] MEDS: PROCHLORPERAZINE 5 MG/ML VIAL 10 MG IV (00:23)
[2025-03-01] MEDS: PANTOPRAZOLE SODIUM 40 MG INJ 80 MG IVP (00:23)
[2025-03-01 00:28] LABS: Albumin* 5.6 g/dL (3.3-5.0); Chloride* 97 mmol/L (96-114); Potassium* 4.1 mmol/L (3.6-5.1); Sodium* 138 mmol/L (135-149)
[2025-03-01 00:30] LABS: Blood Urea Nitrogen* 19 mg/dL (5-24); Creatinine* 1.0 mg/dL (0.5-1.5); Est. Creatinine Clearance* 98.28; Estimated Glomerular Filt Rate 111 ml/min
[2025-03-01 00:31] LABS: Alanine Aminotransferase* 30 U/L (4-50); Alkaline Phosphatase* 101 U/L (40-150); Anion Gap 19 mEq/L (7-15); Aspartate Amino Transferase* 34 U/L (12-35); Bilirubin Total* 2.1 mg/dL (0.1-1.5); Calcium* 10.6 mg/dL (8.4-10.6); Carbon Dioxide* 22 mmol/L (20-32); Glucose* 131 mg/dL (60-115); Total Protein* 9.3 g/dL (6.0-8.3)
== END 2025-03-01 02:03 | disposition home or self-care (01) ==
PROVIDERS: Emergency Provider Family Medicine; PCP Family Medicine
DX: R11.15 Cyclical vomiting syndrome unrelated to migraine (principal)
CPT/HCPCS: 36415; 80053; 83605; 83690; 85025; 86140; 96374; 96375; 99284; J0780; J2470; J7120